=== PATIENT | female | born 1930 | race Caucasian/White ===

== ENCOUNTER 2017-05-31 23:36 | Emergency (ER) | payer MEDICARE, OTHER ==
[2017-06-01] MEDS: HYDROCODONE/APAP (5/325) TAB PO (04:02)
[2017-06-01] MEDS: ONDANSETRON (ODT) 4 MG TAB ODT (04:02)
== END 2017-06-01 04:51 | disposition home or self-care (01) ==
LOC: E/R 23:36
DX: S52.121A Displaced fracture of head of right radius, initial encounter for closed fracture (principal); S52.021A Displaced fracture of olecranon process without intraarticular extension of right ulna, initial encounter for closed fracture; E03.9 Hypothyroidism, unspecified; W01.0XXA Fall on same level from slipping, tripping and stumbling without subsequent striking against object, initial encounter; Y92.9 Unspecified place or not applicable
CPT/HCPCS: 73080; 73080-RT; 99283-25